=== PATIENT | male | born 1965 | race Caucasian/White ===

== ENCOUNTER 2021-12-18 14:39 | Emergency (ER) | payer SELFPAY ==
--- NOTE | 2021-12-18 16:32 | Emergency Department Report ---
History of Present Illness - General Chief Complaint: Overdose Stated Complaint: METHADONE OD Time Seen by Provider: 12/18/21 16:11 Source: patient, EMS Mode of arrival: Stretcher Limitations: No Limitations - History of Present Illness Initial Comments: Patient is 56-year-old male with history of narcotics addiction. Patient stated that he is on methadone 50 mg and his is on 110 mg daily. He stated that he accidentally took his medication instead of his medication. He stated that he took 1 tablet of 110 mg. Patient stated that this is happened approximately 2 hours ago. He stated that he feels sleepy and drowsy but denied any difficulty breathing, weakness, chest pain, shortness of breath, nausea or vomiting. MD Complaint: accidental overdose -: hour(s) (2) Context: Accidental Overdose: medication error Treatments Prior to Arrival: none - Related Data Home Medications Medication Instructions Recorded Confirmed Last Taken Methadone 50 mg PO QAM 12/18/21 12/18/21 12/18/21 13:00 Allergies Allergy/AdvReac Type Severity Reaction Status Date / Time No Known Allergies Allergy Verified 12/18/21 14:42 ED Review of Systems ROS: Stated complaint: METHADONE OD Other details as noted in HPI Comment: All other systems reviewed and negative Constitutional: denies: chills, fever Respiratory: denies: cough, shortness of breath, SOB with exertion Cardiovascular: denies: chest pain, palpitations Gastrointestinal: denies: abdominal pain, nausea, vomiting, diarrhea, constipation, hematemesis, melena, hematochezia Musculoskeletal: denies: back pain Neurological: denies: headache, weakness, numbness, paresthesias, confusion, abnormal gait Psychiatric: anxiety. denies: depression, auditory hallucinations, visual monroe ucinations, homicidal thoughts, suicidal thoughts ED Past Medical Hx - Social History Smoking Status: Never Smoker Substance Use Type: None - Medications Home Medications: Home Medications Medication Instructions Recorded Confirmed Last Taken Type Methadone 50 mg PO QAM 12/18/21 12/18/21 12/18/21 13:00 History ED Physical Exam - General Limitations: No Limitations General appearance: alert, in no apparent distress - Head Head exam: Present: atraumatic, normocephalic, normal inspection - Eye Eye exam: Present: normal appearance - ENT ENT exam: Present: normal exam, normal orophraynx, mucous membranes moist - Neck Neck exam: Present: normal inspection, full ROM. Absent: tenderness, meningismus - Respiratory Respiratory exam: Present: normal lung sounds bilaterally - Cardiovascular Cardiovascular Exam: Present: regular rate, normal rhythm, normal heart sounds - GI/Abdominal GI/Abdominal exam: Present: soft, normal bowel sounds. Absent: distended, tenderness, guarding, rebound, rigid, organomegaly, mass, bruit, pulsatile mass, hernia - Back Exam Back exam: Present: normal inspection, full ROM. Absent: CVA tenderness (R), CVA tenderness (L) - Neurological Exam Neurological exam: Present: alert, oriented X3, CN II-XII intact, normal gait, reflexes normal. Absent: motor sensory deficit - Psychiatric Psychiatric exam: Present: normal mood. Absent: homicidal ideation, suicidal ideation - Skin Skin exam: Present: warm, intact, normal color ED Course Vital Signs 12/18/21 12/18/21 12/18/21 14:39 15:51 15:54 Temperature 97.9 F 97.9 F 97.9 F Pulse Rate 65 83 81 Respiratory 18 20 18 Rate Blood Pressure 149/90 Blood Pressure 174/105 146/95 [Left] O2 Sat by Pulse 96 99 99 Oximetry 12/18/21 16:41 Temperature 98.6 F Pulse Rate 50 L Respiratory 10 L Rate Blood Pressure Blood Pressure 153/79 [Left] O2 Sat by Pulse 97 Oximetry ED Medical Decision Making - Medical Decision Making Patient remained stable in the ER with stable vital sign. Patient stated that he does not want to stay and he feels good he want to go home. Patient is alert, oriented x3 in no acute distress able to make sound decision. Patient signed AGAINST MEDICAL ADVICE after explained to him thoroughly the dangers of leaving AGAINST MEDICAL ADVICE and that could lead to disability or . Patient advised to come to the ER or go to another ER if his symptoms get worse. Critical care attestation.: If time is entered above; I have spent that time in minutes in the direct care of this critically ill patient, excluding procedure time. ED Disposition Clinical Impression: Accidental drug overdose Disposition: LEFT AGAINST MEDICAL ADVICE Is pt being admited?: No Condition: Stable Referrals: ROYAL STEINBERG MD [Primary Care Provider] - 3-5 Days Forms: AMA Form
[2021-12-18 16:42] VITALS: BP 153/79
== END 2021-12-18 16:40 | disposition left against medical advice (07) ==
LOC: ED 14:39
DX: T40.3X1A Poisoning by methadone, accidental (unintentional), initial encounter (principal); Y92.89 Other specified places as the place of occurrence of the external cause
CPT/HCPCS: 99283

== ENCOUNTER 2022-04-06 14:57 | Emergency (ER) | payer SELFPAY ==
[2022-04-06] MEDS ORDERED: ASPIRIN 325 MG TAB PO ONE (15:09)
--- NOTE | 2022-04-06 15:47 | XRay Report ---
CHEST 2 VIEWS INDICATION / CLINICAL INFORMATION: chest pain. FINDINGS: SUPPORT DEVICES: None. HEART / MEDIASTINUM: No significant abnormality. LUNGS / PLEURA: Ill-defined mixed airspace and interstitial opacity persists within both lower lungs primarily within the left lower lung. This could represent pneumonia. Signer Name: Arnoldo Smith MD Signed: 04/06/2022 3:43 PM Workstation Name: [id number]
[2022-04-06 15:54] LABS: Basophils # (Auto) 0.1 K/mm3 (0.0-0.1); Basophils % (Auto) 1.4 % (0.0-1.8); Eosinophils # (Auto) 0.2 K/mm3 (0.0-0.4); Eosinophils % (Auto) 1.7 % (0.0-4.3); Hematocrit 48.7 % (35.5-45.6); Hemoglobin 16.3 gm/dl (11.8-15.2); Lymphocytes # (Auto) 1.5 K/mm3 (1.2-5.4); Lymphocytes % (Auto) 16.1 % (13.4-35.0); Mean Corpuscular HGB Conc 34 % (32-34); Mean Corpuscular Volume 88 fl (84-94); Platelet Count 148 K/mm3 (140-440); Red Blood Count 5.51 M/mm3 (3.65-5.03); Red Cell Distribution Width 14.9 % (13.2-15.2)
[2022-04-06 16:19] LABS: Alanine Aminotransferase 23 units/L (7-56); Albumin 3.7 g/dL (3.9-5); BUN/Creatinine Ratio 12; Blood Urea Nitrogen 11 mg/dL (9-20); Calcium 9.7 mg/dL (8.4-10.2); Hemolysis Index 7
[2022-04-06] MEDS ORDERED: PANTOPRAZOLE 40 MG TAB PO ONE (18:22)
[2022-04-06] MEDS ORDERED: IBUPROFEN 600 MG TAB PO ONE (18:22)
[2022-04-06] MEDS ORDERED: ACETAMINOPHEN 325 MG TAB PO ONE (18:22)
--- NOTE | 2022-04-06 18:25 | Emergency Department Report ---
ED General Adult HPI - General Chief complaint: Chest Pain Stated complaint: CHEST PAIN Time Seen by Provider: 04/06/22 18:13 Source: patient, RN notes reviewed, old records reviewed Mode of arrival: Ambulatory Limitations: No Limitations - History of Present Illness Initial comments: The patient was evaluated in the emergency department for symptoms described in the history of present illness. He/she was evaluated in the context of the global COVID-19 pandemic, which necessitated consideration that the patient might be at risk for infection with the virus that causes COVID-19. Institutional protocols and algorithms that pertain to the evaluation of patients at risk for COVID-19 are in a state of rapid change based on information released by regulatory bodies including the CDC and federal and state organizations. These policies and algorithms were followed during the patient's care in the emergency department. Please note that these policies, procedures and recommendations changed on a rapid basis. This is a 56-year-old gentleman who is right-hand dominant, with a distant history of DVT associated with prostate cancer, approximately 10 years ago, who presents to the department today with a complaint of right-sided chest wall pain , which is nontraumatic, constant for the past 3 days, increases with palpation and range of motion, decreases with rest, also increases with deep inspiration. No vomiting, diaphoresis or exertional shortness of breath, denies travel, surgery, immobilization, additional DVT and pulmonary embolism risk factors. Reports that his father had an [place] in his 70s. Reports that to the best of his knowledge, mother and siblings do not have a history of DVT, PE, or ACS. The patient also endorses that he has not completed the COVID-19 vaccination series. He has a chronic cough. He has a recent loss of smell and possibly taste within the past week Patient does report chronic cough. -: days(s) Location: chest Radiation: non-radiation Quality: aching Consistency: constant Improves with: rest Worsens with: other (Palpation, range of motion, and deep inspiration) - Related Data Home Medications Medication Instructions Recorded Confirmed Last Taken Methadone 50 mg PO QAM 12/18/21 12/18/21 12/18/21 13:00 Previous Rx's Medication Instructions Recorded Last Taken Type Acetaminophen [Non-Aspirin Extra 500 mg PO Q6HR PRN #30 tablet 04/06/22 Unknown Rx Strength] Albuterol Sulfate [Proair 90 mcg IH Q4HR PRN #2 aer.pow.ba 04/06/22 Unknown Rx Respiclick] Ibuprofen [Motrin] 600 mg PO Q8H PRN #30 tablet 04/06/22 Unknown Rx Nicotine Polacrilex [Nicotine Gum] 4 mg BC PRN #1 pack 04/06/22 Unknown Rx Allergies Allergy/AdvReac Type Severity Reaction Status Date / Time Iodinated Contrast Media AdvReac Hives Verified 04/06/22 20:03 ED Review of Systems ROS: Stated complaint: CHEST PAIN Other details as noted in HPI Constitutional: denies: diaphoresis, fever Eyes: denies: eye discharge ENT: denies: epistaxis Respiratory: cough. denies: wheezing Cardiovascular: chest pain Gastrointestinal: denies: abdominal pain Musculoskeletal: myalgia Neurological: denies: weakness Psychiatric: anxiety Hematological/Lymphatic: denies: easy bleeding ED Past Medical Hx - Social History Smoking Status: Never Smoker Substance Use Type: None - Medications Home Medications: Home Medications Medication Instructions Recorded Confirmed Last Taken Type Methadone 50 mg PO QAM 12/18/21 12/18/21 12/18/21 13:00 History Acetaminophen [Non-Aspirin Extra 500 mg PO Q6HR PRN #30 tablet 04/06/22 Unknown Rx Strength] Albuterol Sulfate [Proair 90 mcg IH Q4HR PRN #2 aer.pow. 04/06/22 Unknown Rx Respiclick] Ibuprofen [Motrin] 600 mg PO Q8H PRN #30 tablet 04/06/22 Unknown Rx Nicotine Polacrilex [Nicotine Gum] 4 mg BC PRN #1 pack 04/06/22 Unknown Rx ED Physical Exam - General Limitations: No Limitations General appearance: alert, in no apparent distress - Head Head exam: Present: atraumatic, normocephalic - Eye Eye exam: Present: normal appearance, EOMI. Absent: nystagmus - ENT ENT exam: Present: normal exam, normal orophraynx, mucous membranes moist, normal external ear exam - Neck Neck exam: Present: normal inspection, full ROM. Absent: tenderness, meningismus - Respiratory Respiratory exam: Present: normal lung sounds bilaterally, chest wall tenderness. Absent: respiratory distress, wheezes, rales, rhonchi, stridor - Cardiovascular Cardiovascular Exam: Present: regular rate, normal rhythm, normal heart sounds. Absent: bradycardia, tachycardia, irregular rhythm, systolic murmur, diastolic murmur, rubs, gallop - GI/Abdominal GI/Abdominal exam: Present: soft. Absent: distended, tenderness, guarding, rebound, rigid, pulsatile mass - Rectal Rectal exam: Present: deferred - Extremities Exam Extremities exam: Present: normal inspection, full ROM, other (2+ pulses noted in the bilateral upper and lower extremities. There is no palpable cord. negative Homans sign. Muscular compartments are soft. The pelvis is stable.). Absent: pedal edema, calf tenderness - Back Exam Back exam: Present: normal inspection. Absent: tenderness, CVA tenderness (R), CVA tenderness (L), paraspinal tenderness, vertebral tenderness - Neurological Exam Neurological exam: Present: alert, oriented X3, other (No facial droop. Tongue midline. Extraocular movements intact bilaterally. Facial sensation intact to light touch in V1, V2, V3 distribution bilaterally. 5 and a 5 strength in 4 extremities. Sensation intact to light touch in 4 extremities.). Absent: motor sensory deficit - Psychiatric Psychiatric exam: Present: normal affect, normal mood, anxious - Skin Skin exam: Present: warm, dry, intact, normal color. Absent: rash ED Course Vital Signs 04/06/22 04/06/22 04/06/22 15:06 18:52 19:47 Temperature 98.4 F 98.7 F Pulse Rate 70 71 Respiratory 16 18 Rate Blood Pressure Blood Pressure 138/90 189/91 [Left] O2 Sat by Pulse 95 99 98 Oximetry O2 Sat by Pulse Oximetry [ Digit-Finger] 04/06/22 04/06/22 04/06/22 20:04 20:20 21:49 Temperature 98.8 F Pulse Rate Respiratory Rate Blood Pressure 165/78 Blood Pressure [Left] O2 Sat by Pulse 96 Oximetry O2 Sat by Pulse 99 Oximetry [ Digit-Finger] - Reevaluation(s) Reevaluation #1: 04/06/22 20:21 Differential diagnosis, including but not limited to: GERD, gastritis, hiatal hernia, pneumonia, costochondritis, COVID-19, pulmonary embolism Assessment and plan: 56-year-old gentleman with chest pain, associated with pleurisy, abnormal EKG, not currently tachycardic, tachypneic or hypoxic, who may also have superimposed COVID-19. Troponin negative x2. EKG nonspecific. D-dimer elevated. CT scan of the chest will be obtained. Patient reports he requires premedication prior to IV contrast administration. He will be medicated, we will obtain CT scan of the chest. He is also found to have very mild hyperglycemia, repeat Accu-Chek is pending. Discussed the plan of care with the patient. He is agreeable to the plan of care 04/06/22 20:24 Repeat Accu-Chek is 124 04/06/22 21:46 EKG is unchanged x2. Troponin negative x2. Symptoms present for 3 days. Heart score 3. This is most likely costochondritis, likely secondary to coughing, likely secondary to undiagnosed bronchitis/emphysema, and probable COVID-19. CTA chest is negative for pulmonary embolism. Discharged with Tylenol, Motrin, albuterol, outpatient primary care, cardiology, and pulmonology follow-up. Repeat Accu-Chek is improved. Patient observed in this department for hours without clinical decompensation. On final reassessment patient endorses significant improvement in symptoms. He is watching TV, and watching videos on his cellular phone, and he is endorsing readiness for discharge. 04/06/22 21:53 - Pulse Oximetry Interpretation Digit-Finger Initial Pulse Oximetry Readin O2 Sat by Pulse Oximetry: 99 Actions Taken: none ED Medical Decision Making - Lab Data Result diagrams: 04/06/22 15:40 04/06/22 15:40 Vital Signs 04/06/22 04/06/22 04/06/22 15:06 18:52 19:47 Temperature 98.4 F 98.7 F Pulse Rate 70 71 Respiratory 16 18 Rate Blood Pressure 138/90 189/91 [Left] O2 Sat by Pulse 95 99 98 Oximetry 04/06/22 20:04 Temperature 98.8 F Pulse Rate Respiratory Rate Blood Pressure [Left] O2 Sat by Pulse Oximetry Lab Results 04/06/22 04/06/22 04/06/22 Range/Units 15:40 15:40 18:25 WBC 9.5 (4.5-11.0) K/mm3 RBC 5.51 H (3.65-5.03) M/mm3 Hgb 16.3 H (11.8-15.2) gm/dl Hct 48.7 H (35.5-45.6) % MCV 88 (84-94) fl MCH 30 (28-32) pg MCHC 34 (32-34) % RDW 14.9 (13.2-15.2) % Plt Count 148 (140-440) K/mm3 Lymph % (Auto) 16.1 (13.4-35.0) % Centre % (Auto) 11.0 H (0.0-7.3) % Eos % (Auto) 1.7 (0.0-4.3) % Baso % (Auto) 1.4 (0.0-1.8) % Lymph # (Auto) 1.5 (1.2-5.4) K/mm3 Centre # (Auto) 1.0 H (0.0-0.8) K/mm3 Eos # (Auto) 0.2 (0.0-0.4) K/mm3 Baso # (Auto) 0.1 (0.0-0.1) K/mm3 Seg Neutrophils % 69.8 (40.0-70.0) % Seg Neutrophils # 6.6 (1.8-7.7) K/mm3 D-Dimer 235.90 H (0-234) ng/mlDDU Sodium 137 (137-145) mmol/L Potassium 3.9 (3.6-5.0) mmol/L Chloride 99.7 (98-107) mmol/L Carbon Dioxide 27 (22-30) mmol/L Anion Gap 14 mmol/L BUN 11 (9-20) mg/dL Creatinine 0.9 (0.8-1.3) mg/dL Estimated GFR > 60 ml/min BUN/Creatinine Ratio 12 % Glucose 73 L (75-100) mg/dL POC Glucose (70-105) mg/dL Calcium 9.7 (8.4-10.2) mg/dL Total Bilirubin 0.60 (0.1-1.2) mg/dL AST 22 (5-40) units/L ALT 23 (7-56) units/L Alkaline Phosphatase 52 (35-129) units/L Troponin T < 0.010 (0.00-0.029) ng/mL Total Protein 7.1 (6.3-8.2) g/dL Albumin 3.7 L (3.9-5) g/dL Albumin/Globulin Ratio 1.1 % 04/06/22 04/06/22 Range/Units 18:25 18:31 WBC (4.5-11.0) K/mm3 RBC (3.65-5.03) M/mm3 Hgb (11.8-15.2) gm/dl Hct (35.5-45.6) % MCV (84-94) fl MCH (28-32) pg MCHC (32-34) % RDW (13.2-15.2) % Plt Count (140-440) K/mm3 Lymph % (Auto) (13.4-35.0) % Centre % (Auto) (0.0-7.3) % Eos % (Auto) (0.0-4.3) % Baso % (Auto) (0.0-1.8) % Lymph # (Auto) (1.2-5.4) K/mm3 Centre # (Auto) (0.0-0.8) K/mm3 Eos # (Auto) (0.0-0.4) K/mm3 Baso # (Auto) (0.0-0.1) K/mm3 Seg Neutrophils % (40.0-70.0) % Seg Neutrophils # (1.8-7.7) K/mm3 D-Dimer (0-234) ng/mlDDU Sodium (137-145) mmol/L Potassium (3.6-5.0) mmol/L Chloride (98-107) mmol/L Carbon Dioxide (22-30) mmol/L Anion Gap mmol/L BUN (9-20) mg/dL Creatinine (0.8-1.3) mg/dL Estimated GFR ml/min BUN/Creatinine Ratio % Glucose (75-100) mg/dL POC Glucose 72 (70-105) mg/dL Calcium (8.4-10.2) mg/dL Total Bilirubin (0.1-1.2) mg/dL AST (5-40) units/L ALT (7-56) units/L Alkaline Phosphatase (35-129) units/L Troponin T < 0.010 (0.00-0.029) ng/mL Total Protein (6.3-8.2) g/dL Albumin (3.9-5) g/dL Albumin/Globulin Ratio % - EKG Data -: EKG Interpreted by Ma EKG shows normal: sinus rhythm Rate: normal - EKG Data 04/06/22 20:19 EKG #1 is interpreted at 15: 14. Sinus rhythm, 67 bpm. Normal axis, normal intervals, normal P wave axis, borderline high left ventricular voltage. This is an abnormal EKG. This is not a STEMI. There is nonspecific ST depression in the inferior leads, and there is nonspecific ST concave up abnormality 1 and aVL. There is also poor R wave progression. This is an abnormal EKG. This is not a STEMI. EKG #2 was interpreted at 18: 36 Sinus rhythm, with a rate of 66 bpm. There is a normal axis, normal P wave axis, poor R wave progression, nonspecific ST abnormality. This is an abnormal EKG. This is not a STEMI. This appears to be unchanged from prior EKG. - Radiology Data Radiology results: pending, report reviewed, image reviewed CHEST 2 VIEWS INDICATION / CLINICAL INFORMATION: chest pain. FINDINGS: SUPPORT DEVICES: None. HEART / MEDIASTINUM: No significant abnormality. LUNGS / PLEURA: Ill-defined mixed airspace and interstitial opacity persists within both lower lungs primarily within the left lower lung. This could represent pneumonia. Signer Name: Arnoldo Smith MD Signed: 04/06/2022 2:43 PM Workstation Name: [id number] CTA CHEST WITH IV CONTRAST INDICATION / CLINICAL INFORMATION: Acute pleuritic chest pain, history of DVT. TECHNIQUE: Axial CT images were obtained through the chest after injection of 100 mL Omnipaque 350 IV contrast. 3 plane MIP and/or 3D reconstructions were produced. All CT scans at this location are performed using CT dose reduction for ALARA by means of automated exposure control. COMPARISON: CT chest 10/16/2016, chest radiograph earlier today F INDINGS: PULMONARY ARTERIES: No pulmonary emboli. THORACIC AORTA: No significant abnormality. HEART: No significant abnormality. CORONARY ARTERIES: Minimal coronary artery calcification PLEURA: No pleural effusion. No pneumothorax. LYMPH NODES: There are a few slightly prominent lymph nodes scattered throughout the mediastinum but this is unchanged from 2017. LUNGS: Mild emphysematous change is present throughout both upper lobes. There is minimal interstitial lung disease bilaterally not appreciably changed from [address] No focal area of consolidation or mass identified. ADDITIONAL FINDINGS: None. UPPER ABDOMEN: No acute findings. SKELETAL STRUCTURES: No significant acute osseous a bnormality. IMPRESSION: 1. No CT evidence for pulmonary embolism. 2. Mild chronic interstitial lung disease. 3. Mild emphysematous change.. Signer Name: Marialuisa Sevilla MD Signed: 04/06/2022 8:24 PM Workstation Name: [id number] Critical care attestation.: If time is entered above; I have spent that time in minutes in the direct care of this critically ill patient, excluding procedure time. ED Disposition Clinical Impression: Pleuritic chest pain, Suspected COVID-19 virus infection, Bronchitis Disposition: HOME / SELF CARE / HOMELESS Is pt being admited?: No Does the pt Need Aspirin: No Condition: Good Instructions: Chest Wall Pain, Costochondritis, Chronic Bronchitis (ED) Additional Instructions: I recommend that the patient complete COVID-19 vaccination series when able to. Avoid heavy lifting and strenuous physical activity. Avoid consumption of alcohol, tobacco and smoke products. Take the prescribed pain medications as needed and directed, and cough medication as needed and directed. Recommend the patient follow-up with a primary care doctor or rn float within the next 3 to 5 days. Recommend that patient follow-up with a track and field coach within the next month. Do not take metformin medication for the next 2 days. Please return to the emergency room right away with new pain, worsened pain, migration of pain, projectile vomiting, change in mental status, confusion, inability tolerate liquid feeds, new, worsened or different symptoms not present on the initial emergency room evaluation Prescriptions: Ibuprofen [Motrin] 600 mg PO Q8H PRN #30 tablet PRN Reason: Pain Nicotine Polacrilex [Nicotine Gum] 4 mg BC PRN #1 pack Acetaminophen [Non-Aspirin Extra Strength] 500 mg PO Q6HR PRN #30 tablet PRN Reason: Pain , Severe (7-10) Albuterol Sulfate [Proair Respiclick] 90 mcg IH Q4HR PRN #2 aer.pow.ba PRN Reason: Wheezing Referrals: [facility] [Provider Group] - 3-5 Days [facility] [Provider Group] - 3-5 Days OSIEL CHU MD [Staff Physician] - 3-5 Days Heart Score - HEART Score History: Slightly suspicious EKG: Non-specific Age: 45-65 Risk factors: 1-2 risk factors Troponin: < normal limit HEART Score: 3 - EKG Read Time Time EKG Completed: 15:14 EKG Read Time: 15:14 - Critical Actions Critical Actions: 0-3 pts:0.9-1.7%risk of adverse cardiac event.Candidate for discharge
[2022-04-06] MEDS ORDERED: methylPREDNISolone Sod Succinate 125 MG/2 ML INJ IV ONE (20:01)
[2022-04-06] MEDS ORDERED: diphenhydrAMINE 50 MG/ML VIAL IV ONE (20:01)
[2022-04-06] MEDS ORDERED: FAMOTIDINE 20 MG/2 ML INJ IV ONE (20:01)
[2022-04-06] MEDS ORDERED: DEXTROSE 50% IN WATER (25GM) 50 ML SYRINGE IV PRN (20:23)
--- NOTE | 2022-04-06 21:29 | Cat Scan Report ---
CTA CHEST WITH IV CONTRAST INDICATION / CLINICAL INFORMATION: Acute pleuritic chest pain, history of DVT. TECHNIQUE: Axial CT images were obtained through the chest after injection of 100 mL Omnipaque 350 IV contrast. 3 plane MIP and/or 3D reconstructions were produced. All CT scans at this location are performed usin g CT dose reduction for ALARA by means of automated exposure control. COMPARISON: CT chest 10/16/2016, chest radiograph earlier today FINDINGS: PULMONARY ARTERIES: No pulmonary emboli. THORACIC AORTA: No significant abnormality. HEART: No significant abnormality. CORONARY ARTERIES: Minimal coronary artery calcification PLEURA: No pleural effusion. No pneumothorax. LYMPH NODES: There are a few slightly prominent lymph nodes scattered throughout the mediastinum but this is unchanged from 2017. LUNGS: Mild emphysematous change is present throughout both upper lobes. There is minimal interstitia l lung disease bilaterally not appreciably changed from [address] No focal area of consolidation or mass identified. ADDITIONAL FINDINGS: None. UPPER ABDOMEN: No acute findings. SKELETAL STRUCTURES: No significant acute osseous abnormality. IMPRESSION: 1. No CT evidence for pulmonary embolism. 2. Mild chronic interstitial lung disease. 3. Mild emphysematous change.. Signer Name: Marialuisa Sevilla MD Signed: 04/06/2022 9:24 PM Workstation Name: [id number]
[2022-04-06 22:34] VITALS: BP 147/82
--- NOTE | 2022-04-07 11:12 | Electrocardiograph Report ---
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
--- NOTE | 2022-04-07 11:15 | Electrocardiograph Report ---
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 Electronically Signed On 04-07-2022 11:15:20 EDT by Dariel Moran
== END 2022-04-06 22:34 | disposition home or self-care (01) ==
LOC: ED 14:57
DX: R07.89 Other chest pain (principal); J40 Bronchitis, not specified as acute or chronic; Z20.822 Contact with and (suspected) exposure to COVID-19
CPT/HCPCS: 36415; 71046; 71275; 80053; 82962; 84484; 85025; 85379; 93005; 96374; 96375; 99285; J1200; J2930; J3490; Q9967